=== PATIENT | male | born 1990 | race African-American/Black ===

== ENCOUNTER 2021-01-26 13:16 | Emergency (ER) | payer OTHER ==
[~2021-01-26] VITALS: Ht 185.4 cm; Wt 73.5 kg
--- NOTE | 2021-01-26 13:25 | NUR ---
[id number], C/O "FEELING STRESS, UNABLE TO SLEEP FOR A FEW DAYS." THE PATIENT IS ALERT AND ORIENTED X4. DENIES PAIN. IN ROOM AIR AND DENIES SOB. RESPIRATION REGULAR AND UNLABORED. WILL CONTINUE TO MONITOR THE PATIENT.
[2021-01-26] MEDS ORDERED: OLANZAPINE 10 MG VIAL IM ONE ×2 (13:30→13:41)
[2021-01-26 13:41] LABS: BASOPHILS % (AUTO) 0.4 % (0.0-2.0); EOSINOPHILS % (AUTO) 0.1 % (0.0-6.0); HEMATOCRIT 45 % (39-51); HEMOGLOBIN 14.2 g/dL (13.5-17.5); LYMPHOCYTES # (AUTO) 2.5 K/uL (0.8-4.8); LYMPHOCYTES % (AUTO) 34.8 % (20.0-44.0); MEAN CORPUSCULAR HGB CONC 32 g/dl (31.0-36.0); MEAN CORPUSCULAR VOLUME 80 fL (80-96); MONOCYTES # (AUTO) 0.5 K/uL (0.1-1.30); MONOCYTES % (AUTO) 7.6 % (2.0-12.0); NEUTROPHILS # (AUTO) 4.1 K/uL (1.8-8.9); NEUTROPHILS % (AUTO) 57.1 % (43.0-81.0); PLATELET COUNT (AUTO) 268 K/uL (150-450); RED BLOOD CELL COUNT(AUTO) 5.54 MIL/uL (4.5-6.0); WHITE BLOOD COUNT (AUTO) 7.2 K/uL (4.3-11.0)
--- NOTE | 2021-01-26 13:45 | NUR ---
The patient refused zyprexa [address] Arcos made aware.
[2021-01-26 13:56] LABS: CARBON DIOXIDE 26 mmol/L (21-32); CHLORIDE 104 mmol/L (98-107); CREATININE 1.7 mg/dL (0.6-1.3); GLUCOSE 131 mg/dL (74-106); POTASSIUM 3.4 mmol/L (3.5-5.1); SODIUM SERUM 142 mmol/L (136-145); UREA NITROGEN, BLOOD 14 mg/dL (7-18)
[2021-01-26 14:01] LABS: ALANINE AMINOTRANSFERASE 23 U/L (12-78); ALBUMIN 3.9 g/dL (3.4-5.0); ALKALINE PHOSPHATASE 40 U/L (46-116); ASPARTATE AMINOTRANSFERASE 28 U/L (15-37); BILIRUBIN,DIRECT 0.2 mg/dL (0.0-0.2); BILIRUBIN,TOTAL 0.9 mg/dL (0.2-1.0); TOTAL PROTEIN, SERUM 7.3 g/dL (6.4-8.2)
[2021-01-26 14:03] LABS: ALCOHOL, BLOOD < 3 mg/dL (0-0)
[2021-01-26 14:04] LABS: ACETAMINOPHEN 0 ug/ml (10-30)
[2021-01-26 14:18] VITALS: BP 145/99
--- NOTE | 2021-01-26 14:18 | NUR ---
Patient discharged to home in stable condition. Written and verbal after care instructions given. Patient verbalizes understanding of instruction.
--- NOTE | 2021-01-26 14:19 | NUR ---
patient denies SI/HI.
== END 2021-01-26 14:18 | disposition home or self-care (01) ==
LOC: ER 13:18
DX: F12.10 Cannabis abuse, uncomplicated (principal); I10 Essential (primary) hypertension; Z60.2 Problems related to living alone
CPT/HCPCS: 36415; 80048-TC; 80076-TC; 85025-TC; G0480; J3490

== ENCOUNTER 2021-01-26 17:37 | Emergency (ER) | payer OTHER ==
[~2021-01-26] VITALS: Ht 185.4 cm; Wt 73.5 kg
[2021-01-26 17:44] VITALS: BP 200/101
--- NOTE | 2021-01-26 17:46 | NUR ---
[id number], from street, took bunch of edibles, denies SI/HI. Patient a/ox4, breathing even and unlabored. Patient kept saying "it was just a bad trip." Placed on a bed, no distress noted. Attached to the monitoring manager.
--- NOTE | 2021-01-26 17:57 | NUR ---
EDDIE MCKEON [phone] (MOTHER)
--- NOTE | 2021-01-26 17:59 | NUR ---
CHARLINE ([phone]). 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
--- NOTE | 2021-01-26 19:45 | NUR ---
ENDORSED TO PAM RANDALL FOR ARCENIO.
--- NOTE | 2021-01-26 20:01 | NUR ---
INFORMED FRIEND CHARLINE PATIENT ELOPED THE FACILITY DR. DONG MADE AWARE.
--- NOTE | 2021-01-26 20:03 | NUR ---
PT REPORT WAS BEING RECEIVED. EXIT ALARM ACTIVATED AND SITTER REPORTED THAT PT STOOD UP AND RAN FOR THE DOOR. TRIED TO FOLLOW BUT PT WAS NOT SEEN. PRAKASH RADER INFORMED FRIEND THAT THE PT LEFT.
== END 2021-01-26 20:09 | disposition left against medical advice (07) ==
LOC: ER 17:37
DX: F12.10 Cannabis abuse, uncomplicated (principal); I10 Essential (primary) hypertension; Z60.2 Problems related to living alone